=== PATIENT | male | born 1985 | race Caucasian/White ===

== ENCOUNTER 2019-11-12 18:17 | Emergency (ER) | payer BC, SELFPAY ==
[2019-11-12 18:22] VITALS: BP 162/97; PULSE 95; RESP 16; TEMP 36.5; O2SAT 96
--- NOTE | 2019-11-12 18:28 | W.ED.GENAD ---
Discharge Plan Disposition Patient Disposition: HOME Condition: Improving Discharge Details Chief Complaint: Laceration Clinical Impression: Laceration of finger of left hand Primary Care Provider: Ramiro Lopez ED Provider: Juan Mayer Home Meds and New Rx's Prescriptions: Continued multivitamin Tablet 1 tab PO DAILY RF: 0 loratadine [Claritin] 10 mg Tablet 10 mg PO PRNRF: 0 Discharge Instructions Instructions: Finger Laceration (ED) Additional Instructions: Leave current dressing in place for 2 to 3 days time, then may remove, gently wash with soap and water, pat dry and replace Band-Aid. Return for removal of sutures in 7 days time. Return sooner if you develop a fever, redness, discharge from the wound or any other acute concerns. Medical Decision Making 34-year-old male who suffered a small laceration to the dorsum of his left hand overlying the middle phalanx of the long finger. Normal motor, sensory, vascular testing with capillary refill less than 2 seconds. Patient was anesthetized, the wound irrigated and examined in a bloodless field without evidence of deep tissue injury, no joint involvement, no foreign body appreciated. He was subsequently repaired with 4 interrupted 4-0 nylon sutures. Discussed with him home care as well as return precautions. He is stable and improved at this time. HPI General Mode of arrival: ambulatory. Date/Time Provider Initiated Documentation: 11/12/19 18:17. Limitations to Documentation: no limitations. Information obtained by: patient. History of Present Illness 34 year old M presents to the emergency department with the chief complaint of Left long finger laceration on dorsum, described as moderate, Quality is described as dull, and is localized to the left and upper extremity. Patient reports no radiation. Patient started experiencing this minute(s) and it has been constant. No relieving factors improve symptom(s), No exacerbating factors reported . Patient notes other (No other injury); denies fever/chills. Patient did receive the following treatments prior to arrival, none Related Data Home Medications Medication Instructions Recorded Confirmed loratadine [Claritin] 10 mg PO PRN 11/12/19 multivitamin 1 tab PO DAILY 11/12/19 11/12/19 Allergies Allergy/AdvReac Type Severity Reaction Status Date / Time No Known Allergies Allergy Unverified 11/12/19 18:27 General Stated Complaint: Laceration SUNSHINE: 4 Review of Systems Narrative: Tetanus up-to-date. Denies other injury. 4 systems reviewed and otherwise negative. [facility] Social History Smoking/Tobacco Use Status: Never Alcohol Intake: current Alcohol Intake frequency: 0-2 drinks per day Substance use type: does not use Exam Narrative Exam Narrative: GEN: awake, alert, oriented 3. Pleasant, well groomed, interactive. HEAD: Normocephalic, atraumatic EXT: Full ROM, no edema, no rash. The left long finger, dorsum, reveals a macerated proxy 1 to 2 cm laceration overlying the middle phalanx. Full range of motion is intact. Distal sensation is intact. Capillary fill less than 2 seconds. Neuro: Grossly normal neurologic exam, conversant, interactive. Psych: Speech fluent, thoughts congruent, affect normal Course Vital Signs Vital signs: Vital Signs Temperature 36.5 C 11/12/19 18:22 Pulse 95 H 11/12/19 18:22 Respiratory Rate 16 11/12/19 18:22 Blood Pressure 162/97 H 11/12/19 18:22 Pulse Oximetry 96 11/12/19 18:22 Temperature 36.5 C 11/12/19 18:22 Temperature Source Skin 11/12/19 18:22 Pulse 95 H 11/12/19 18:22 Respiratory Rate 16 11/12/19 18:22 Respiratory Effort Non-Labored 11/12/19 18:22 Blood Pressure 162/97 H 11/12/19 18:22 Blood Pressure Position Sitting 11/12/19 18:22 Pulse Oximetry 96 11/12/19 18:22 Oxygen Delivery Method Room Air 11/12/19 18:22 Oxygen Flow Rate 0 11/12/19 18:22 Pain Level 2 11/12/19 18:22 Procedures Laceration Laceration 1: Site: hand Side (If applicable): left Size (cm): 1.5 Description: irregular Depth: simple, single layer Local Anesthetic: Lidocaine 1% Pre-repair: wound explored, irrigated extensively and deep structures intact Skin layer closed with: nylon Size (cm): 4-0 Number of sutures: 4 Technique: simple, interrupted
--- NOTE | 2019-11-14 09:05 | CMPROGNOTE_ITS ---
- If Service Date Differs Date of service: 11/14/19 Time of Service: 09:05 Care Management Progress Note Jose is seen in the ED on 11/12/2019 for a laceration of a finger on his left hand. At the request of ED provider, JADON coordinates referral to CELIA Garcia, [facility], of [facility], to assist Jose in establishing care with a local PCP.
== END 2019-11-12 19:10 | disposition home or self-care (01) ==
PROVIDERS: Emergency Provider Emergency Medicine; PCP Internal Medicine
DX: S61.211A Laceration without foreign body of left index finger without damage to nail, initial encounter (principal); W29.3XXA Contact with powered garden and outdoor hand tools and machinery, initial encounter
CPT/HCPCS: 12001; 90471

== ENCOUNTER 2020-09-24 13:12 | Outpatient (REF) | payer BC, SELFPAY ==
[2020-09-24 13:47] LABS: HCT 48.1 % (40.0-50.0); HGB 17.3 g/dL (13.5-17.5); MCH 32.7 pg (27.0-33.0); MCV 90.9 fL (80-95); MPV 11.4 fL (8.0-11.0); Platelet Count 245 10^3/uL (130-400); RBC 5.29 10^6/uL (4.36-5.78); RDW 12.8 % (11.8-14.1)
[2020-09-24 14:45] LABS: Anion Gap 9.4 mmol/L (3-11); BUN 16 mg/dL (7-18); CO2 27.6 mmol/L (21.0-32.0); CREATININE 0.9 mg/dL (0.70-1.30); Chloride 100 mmol/L (98-107); Cholesterol 325 mg/dL (<200); Glucose 125 mg/dL (74-106); HDL Cholesterol 21 mg/dL (40-60); Potassium 4.5 mmol/L (3.5-5.1); Sodium 137 mmol/L (136-145)
[2020-09-24 15:09] LABS: Triglyceride 1657 mg/dL (<150)
[2020-09-24 15:31] LABS: LDL CHOLESTEROL 92 mg/dL (<100)
== END 2020-09-24 13:13 | disposition home or self-care (01) ==
LOC: NCHCN 13:12
PROVIDERS: PCP Internal Medicine; Visit Provider Family Medicine
DX: Z00.00 Encounter for general adult medical examination without abnormal findings (principal); R03.0 Elevated blood-pressure reading, without diagnosis of hypertension; Z13.220 Encounter for screening for lipoid disorders; Z13.228 Encounter for screening for other metabolic disorders
CPT/HCPCS: 80048; 80061; 83721; 85027

== ENCOUNTER 2021-05-17 11:41 | Emergency (ER) | payer BC, SELFPAY ==
--- NOTE | 2021-05-17 11:45 | DI.RAD_ITS ---
Exam(s) XR HAND RT COMPLETE EXAM: XR HAND RT COMPLETE CLINICAL HISTORY: Thumb pain and swelling TECHNIQUE: COMPARISON: No exams were available for comparison FINDINGS: Three views were obtained. There is no evidence of acute fracture or dislocation. No bony abnormali ty seen. There appears to be soft tissue swelling of the thenar eminence. IMPRESSION: RADIATION DOSE DELIVERED: Total DLP
[2021-05-17 11:46] VITALS: BP 175/89; PULSE 86; RESP 14; TEMP 36.7; O2SAT 98
--- NOTE | 2021-05-17 12:00 | ED.GENADUL_ITS ---
Discharge Plan Disposition Patient Disposition: HOME Condition: Stable Discharge Details Clinical Impression: Sprain of hand, thumb, right Primary Care Provider: Ramiro Lopez ED Provider: Sneha Alaniz Home Meds and New Rx's Prescriptions: Continued multivitamin Tablet 1 tab PO DAILY RF: 0 atorvastatin 40 mg tablet 40 mg PO DAILY RF: 0 famotidine 40 mg tablet 40 mg PO DAILY RF: 0 Discharge Instructions Instructions: Skier's Thumb (ED) Additional Instructions: At this time the x-rays are largely within normal limits. There is some soft tissue swelling noted. No acute fracture or dislocation. Rest ice compression elevation. Use the splint as needed for pain and swelling. Please take Tylenol or Ibuprofen with food every 4-6 hours as needed for pain and swelling. Please return or be seen by your PCP or orthopedic if any worsening or concerns. Referrals: Ramiro Lopez [Primary Care Provider] - Return if symptoms worsen Medical Decision Making 35-year-old male presents to the ER chief complaint of right thumb pain and thenar eminence swelling. 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 Denies any other known injury. No significant deformity or ecchymosis no erythema or warmth noted CMS intact distally. Cap refill less than 2 seconds. He was taking Tylenol ibuprofen yesterday none today. Past medical history includes high cholesterol and GERD. I do suspect overuse type injury, tendinitis will order imaging to rule out fracture or other injury. Did offer Tylenol ibuprofen patient declined at this time. Imaging protocol: XR Right hand. Views: 3 or more views. COMPARISON: No relevant prior studies available. FINDINGS: Bones/joints: Normal. Soft tissues: Normal. IMPRESSION: No acute findings. Patient was given a thumb spica readymade splint. Discussed on RICE procedures and follow-up care if no improvement. Instructed to take Tylenol or ibuprofen as needed for pain and swelling. Patient verbalized understanding. This text was generated using [employer]ivid[employer]ortexation system, please disregard any oddities of phrase or misspellings. HPI General Mode of arrival: ambulatory . Date/Time Provider Initiated Documentation: 05/17/21 11:47 . Limitations to Documentation: no limitations . Information obtained by: patient, RN notes reviewed and old records reviewed . HPI Narrative: 35-year-old male presents to the ER chief complaint of right thumb pain and thenar eminence swelling. 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 Denies any other known injury. No significant deformity or ecchymosis no erythema or warmth noted CMS intact distally. Cap refill less than 2 seconds. He was taking Tylenol ibuprofen yesterday none today. Past medical history includes high cholesterol and GERD. Related Data Home Medications Medication Instructions Recorded Confirmed multivitamin 1 tab PO DAILY 11/12/19 05/17/21 atorvastatin 40 mg PO DAILY 05/17/21 05/17/21 famotidine 40 mg PO DAILY 05/17/21 05/17/21 Allergies Allergy/AdvReac Type Severity Reaction Status Date / Time No Known Allergies Allergy Unverified 05/17/21 11:50 General Stated Complaint: Orthopedic SUNSHINE: 3 Review of Systems All systems reviewed & are unremarkable except as noted in HPI and below Musculoskeletal Musculoskeletal: Denies deformity, Reports arthralgias, Reports joint swelling and Denies numbness Neurologic Neurologic: Denies numbness PFSH All Active Problems (Updated 05/17/21 @ 13:23 by Sneha Alaniz) Sprain of hand, thumb, right (Acute) Social History Smoking/Tobacco Use Status: Never Smoking risk assessment performed?: Yes Alcohol Intake: current Alcohol Intake frequency: 0-2 drinks per day Alcohol type: beer and hard liquor Substance use type: does not use Do you feel safe at home: Yes Exam Extrem Right upper extremity: wrist Details: abnormal to inspection; no tenderness and no swelling and hand Details: normal capillary refill, tenderness (With gripping) and swelling Location: of the palm Location: at the thenar eminence; no unusual warmth Course Vital Signs Vital signs: Vital Signs Temperature 36.7 C 05/17/21 11:46 Pulse 86 05/17/21 11:46 Respiratory Rate 14 05/17/21 11:46 Blood Pressure 175/89 H 05/17/21 11:46 Pulse Oximetry 98 05/17/21 11:46 Temperature 36.7 C 05/17/21 11:46 Temperature Source Temporal Artery Scan 05/17/21 11:46 Pulse 86 05/17/21 11:46 Respiratory Rate 14 05/17/21 11:46 Respiratory Effort Non-Labored 05/17/21 11:51 Blood Pressure 175/89 H 05/17/21 11:46 Blood Pressure Position Sitting 05/17/21 11:46 Pulse Oximetry 98 05/17/21 11:46 Oxygen Delivery Method Room Air 05/17/21 11:46 Oxygen Flow Rate 0 05/17/21 11:46 Pain Level 7 05/17/21 11:51 PAWSS Have you Been Recently Intoxicated or Drunk Within the Last 30 days?: No Have you Ever Experienced Previous Episodes of Alcohol Withdrawal?: No Have you ever Experienced Withdrawal Seizures?: No Have you ever Experienced Delirium Tremens(DT)s?: No Have you ever undergone Alcohol Rehabilitation Treatment (i.e, inpt ot outpatient treatment programs)?: No Have you ever Experienced Blackouts?: No Have you ever Combined Alcohol with other Downers within the last 90 days?: No Have you ever Combined Alcohol with any other Substance of Abuse during the last 90 days?: No Positive Blood Alcohol level on Presentation? [PCS.BAL]: No Evidence of Increased Autonomic Activity (i.e. HR>120, tremor, sweating, agitation, nausea)?: No Result: 0
--- NOTE | 2021-05-17 13:18 | DI.VRAD_ITS ---
PROCEDURE INFORMATION: Exam: XR Right Hand Exam date and time: 05/17/2021 11:55 AM Age: 35 years old Clinical indication: Patient HX: Right hand pain, thumb pain and swelling TECHNIQUE: Imaging protocol: XR Right hand. Views: 3 or more views. COMPARISON: No relevant prior studies available. FINDINGS: Bones/joints: Normal. Soft tissues: Normal. IMPRESSION: No acute findings. Dictated and Authenticated by: Anders Huang MD. Ordering:THOMAS Hoover MD
== END 2021-05-17 13:28 | disposition home or self-care (01) ==
PROVIDERS: Emergency Provider Registered Nurse Emergency; PCP Internal Medicine
DX: S63.681A Other sprain of right thumb, initial encounter (principal); X58.XXXA Exposure to other specified factors, initial encounter
CPT/HCPCS: 29125; 99283; 73130; 99282